=== PATIENT | male | born 1930 | race Caucasian/White ===

== ENCOUNTER 2017-04-01 12:31 | Emergency (ER) | payer MEDICARE, BC, OTHER | END 2017-04-01 13:58 | disposition home or self-care (01) | LOC: D.ER 12:31 | DX: L03.116 Cellulitis of left lower limb (principal); T63.461A Toxic effect of venom of wasps, accidental (unintentional), initial encounter; Y93.89 Activity, other specified; Y92.89 Other specified places as the place of occurrence of the external cause; I10 Essential (primary) hypertension ==

== ENCOUNTER 2018-09-26 22:01 | Emergency (ER) | payer MEDICARE, BC ==
[~2018-09-26] VITALS: Ht 180.3 cm; Wt 86.4 kg
[2018-09-26 22:26] VITALS: Ht 180.3 cm; Wt 86.4 kg
[2018-09-26] MEDS ORDERED: LISINOPRIL10 MG PO (22:27)
[2018-09-26 23:33] LABS: APPEARANCE CLOUDY (CLEAR); BILIRUBIN NEGATIVE (NEGATIVE); COLOR YELLOW (YELLOW); GLUCOSE NEGATIVE (NEGATIVE); KETONE NEGATIVE (NEGATIVE); NITRITE NEGATIVE (NEGATIVE); PROTEIN 2+ mg/dL (NEGATIVE); SPECIFIC GRAVITY 1.025 (1.005-1.020); UROBILINOGEN NORMAL (NORMAL)
[2018-09-26 23:35] LABS: BACTERIA MANY /hpf (NONE SEEN); EPITHELIAL CELLS 0-5 /hpf (0-5); RED CELLS - URINE 0-5 /hpf (0-5)
[2018-09-27] MEDS ORDERED: LEVOFLOXACIN500 MG PO (00:36)
[2018-09-27 01:04] VITALS: BP 137/86
== END 2018-09-27 01:04 | disposition home or self-care (01) ==
LOC: D.ER 22:01
PROVIDERS: Emergency Medicine
DX: N40.0 Benign prostatic hyperplasia without lower urinary tract symptoms (principal); N39.0 Urinary tract infection, site not specified; I10 Essential (primary) hypertension

== ENCOUNTER 2020-01-25 12:46 | Emergency (ER) | payer MEDICARE, BC ==
[~2020-01-25] VITALS: Ht 180.3 cm; Wt 81.8 kg
[~2020-01-25 12:46] MED LIST: LEVOFLOXACIN500 MG PO; LISINOPRIL10 MG PO
[2020-01-25 12:53] VITALS: Ht 180.3 cm; Wt 81.8 kg
[2020-01-25 14:19] LABS: BILIRUBIN NEGATIVE (NEGATIVE); GLUCOSE NEGATIVE (NEGATIVE); KETONE NEGATIVE (NEGATIVE); NITRITE POSITIVE (NEGATIVE); UROBILINOGEN NORMAL (NORMAL)
[2020-01-25 14:20] LABS: RED CELLS - URINE 0-5 /hpf (0-5)
[2020-01-25 14:21] LABS: BACTERIA MANY /hpf (NEGATIVE)
[2020-01-25] MEDS ORDERED: SMZ-TMP DS 800-1 TAB PO (14:24)
[2020-01-25 14:33] VITALS: BP 148/86
== END 2020-01-25 14:34 | disposition home or self-care (01) ==
LOC: D.ER 12:46
PROVIDERS: Emergency Medicine
DX: T83.098A Other mechanical complication of other urinary catheter, initial encounter (principal); N39.0 Urinary tract infection, site not specified; I10 Essential (primary) hypertension

== ENCOUNTER 2020-12-27 18:47 | Emergency (ER) | payer MEDICARE, BC ==
[~2020-12-27] VITALS: Ht 180.3 cm; Wt 83.9 kg
[~2020-12-27 18:47] MED LIST changes: +SMZ-TMP DS 800-1 TAB PO
[2020-12-27 19:08] VITALS: Ht 180.3 cm; Wt 83.9 kg
[2020-12-27 20:39] LABS: NITRITE POSITIVE (NEGATIVE)
[2020-12-27 20:40] LABS: BILIRUBIN NEGATIVE (NEGATIVE); KETONE MODERATE mg/dL (NEGATIVE); UROBILINOGEN NORMAL mg/dL (< 2)
[2020-12-27 20:43] LABS: WHITE CELLS - URINE >50 HPF (0-1)
[2020-12-27 20:44] LABS: BACTERIA MANY HPF (NONE SEEN); SQUAMOUS EPITHELIAL NONE SEEN HPF (0-4)
[2020-12-27] MEDS ORDERED: VOLTAREN25 MG PO (21:18)
[2020-12-27] MEDS ORDERED: LEVOFLOXACIN500 MG PO (21:18)
[2020-12-27] MEDS ORDERED: CHRONULAC30 ML PO (21:19)
== END 2020-12-27 22:12 | disposition home or self-care (01) ==
LOC: D.ER 18:47
PROVIDERS: Family Medicine
DX: N39.0 Urinary tract infection, site not specified (principal); I10 Essential (primary) hypertension; M25.551 Pain in right hip